=== PATIENT | male | born 2000 | race Caucasian/White ===

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

== ENCOUNTER 2018-11-15 18:54 | Emergency (ER) | payer SELFPAY ==
[~2018-11-15] VITALS: Ht 172.7 cm; Wt 54.4 kg
[~2018-11-15 18:54] MED LIST changes: +ACHD5005 PO; +CEPH-507 PO; -HYDR-3812 PO; +HYDR-4226 PO; +MUPI22OI2 TP
--- NOTE | 2018-11-15 19:00 | NUR ---
pt here by self. pt alert [facility] 15. pt c/o " dehydration or uti". c/o " tip of penis irritated". says " I did masterbate before bed last noc". pt c/o pain with ua and a penis d/c started today. denies other ua c/os. denies abd pain and denies testicle pain and denies n/v/d. pt does relate hes been drinking alot of h20 today. no sighns of dehydration noted. no acute sighns of dyspnea noted.i will leave penis assessment deferrd to dr. keysha osuna pt at 1905.
--- NOTE | 2018-11-15 19:12 | ED GU-Female ---
General Chief Complaint: - Urinary Stated Complaint: POSSIBLE UTI Source: patient History of Present Illness Date Seen by Provider: Nov 15, 2018 Time Seen by Provider: 19:02 Initial Comments PT ARRIVES VIA POV FROM HOME STATES "THE TIP OF MY PENIS HOLE IS IRRITATED" STATES 'I WAS SUPER DEHYDRATED THIS MORNING" STATES HE HAD SOME BURNING ON URINATION THIS AM HAS BEEN DRINKING ALOT OF WATER TODAY AND SYMPTOMS HAVE IMPROVED STATES HE "POSSIBLY": HAS HAD SOME DRAINAGE FROM PENIS, BUT "NOT SURE" NO FEVER NO ABDOMINAL OR BACK PAIN NO NAUSEA/VOMITING NO HISTORY OF UTI'S OR STD'S PCP: DR. Ye REA Allergies and Home Medications Allergies Coded Allergies: No Known Drug Allergies (Unverified , 07/30/10) Home Medications Cefuroxime Axetil 500 Mg Tablet, 500 MG PO BID Prescribed by: CLEO CALL on 06/02/152315 Cephalexin 500 Mg Capsule, 500 MG PO TID Prescribed by: CLEO CALL on 02/25/171099 Cyclobenzaprine HCl 10 Mg Tablet, 10 MG PO Q8H PRN for SPASMS Prescribed by: XIOMARA LANGSTON on 02/22/172000 Doxycycline Monohydrate 100 Mg Capsule, 100 MG PO BID Prescribed by: JARROD EDMONDS on 11/15/18 194 Hydrocodone Bit/Acetaminophen 1 Each Tablet, 1 EACH PO Q4H PRN for PAIN Prescribed by: CLEO CALL on 06/02/15 2333 Hydrocodone Bit/Acetaminophen 1 Each Tablet, 1 EACH PO Q4H PRN for PAIN Prescribed by: XIOMARA LANGSTON on 02/22/172000 Hydrocodone/Acetaminophen 1 Each Tablet, 1 EACH PO Q4H PRN for PAIN-SEVERE Prescribed by: CLEO CALL on 02/25/17 1100 Mupirocin 22 Gm Oint...g., 22 GM TP DAILY Prescribed by: CLEO CALL on 02/25/17 1100 Mupirocin Calcium 15 Gm Cream..g., 15 GM TP UD Apply to affected area twice daily 7 days. Prescribed by: XIOMARA LANGSTON on 02/22/172000 Patient Home Medication List Home Medication List Reviewed: Yes Review of Systems Review of Systems Constitutional: see HPI Respiratory: no symptoms reported Cardiovascular: no symptoms reported Gastrointestinal: no symptoms reported Genitourinary: see HPI Musculoskeletal: no symptoms reported Skin: no symptoms reported Endocrine: No Symptoms Reported Hematologic/Lymphatic: No Symptoms Reported Past Fnhusjd-Pzduxh-Hifubk Hx Patient Social History Alcohol Use: Occasionally Uses Recreational Drug Use: Yes (ADMITS TO THC, UDS + FOR COCAINE AND THC 11/15/18) Drug of Choice: ADMITS TO THC, UDS + FOR COCAINE AND THC 11/15/18 Smoking Status: Current Someday Smoker (SMOKES CIGARETTES AND VAPES) Type Used: Cigarettes, Electronic/Vapor Recent Foreign Travel: No Contact w/Someone Who Travel: No Immunizations Up To Date Tetanus Booster (TDap): Less than 5yrs Past Medical History Surgeries: Yes Tonsillectomy Respiratory: No Cardiac: No Neurological: No Sexually Transmitted Disease: No Genitourinary: No Gastrointestinal: No Musculoskeletal: No Endocrine: No HEENT: Yes Tonsilitis Cancer: No Psychosocial: No Integumentary: No Blood Disorders: No Adverse Reaction/Blood Tranf: No Family Medical History No Pertinent Family Hx Physical Exam Vital Signs Vital Signs - First Documented 11/15/18 19:00 Temp 99.3 Pulse 92 Resp 16 B/P (MAP) 123/92 (102) Pulse Ox 98 O2 Delivery Room Air Capillary Refill : Height, Weight, BMI Height: 5'8.00" Weight: 140lbs. 0oz. 63.605629xm; 21.09 BMI Method:Stated General Appearance: no apparent distress, thin Cardiovascular: regular rate, rhythm, no murmur Respiratory: normal breath sounds Gastrointestinal: non tender, soft Genital/Rectal: other (ERYTHEMA TO URETHRAL ORIFICE, WITH SMALL AMOUNT OF PURULENT DRAINAGE) Back: normal inspection, no CVA tenderness Extremities: normal inspection Neurologic/Psychiatric: watcher lookout tower II-XII nml as tested, no motor/sensory deficits, alert, normal mood/affect, oriented x 3 Skin: normal color, warm/dry Progress/Results/Core Measures Suspected Sepsis SIRS Temperature: Pulse: Respiratory Rate: Blood Pressure / Mean: Results/Orders Lab Results Laboratory Tests Test 11/15/18 19:19 11/15/18 19:23 Range/Units Urine Color YELLOW Urine Clarity SLIGHTLY CLOUDY Urine pH 5 5-9 Urine Specific [place] 1.025 H 1.016-1.022 Urine Protein 2+ H NEGATIVE Urine Glucose (UA) NEGATIVE NEGATIVE Urine Ketones 2+ H NEGATIVE Urine Nitrite NEGATIVE NEGATIVE Urine Bilirubin NEGATIVE NEGATIVE Urine Urobilinogen NORMAL NORMAL MG/DL Urine Leukocyte Esterase 2+ H NEGATIVE Urine RBC (Auto) 5+ H NEGATIVE Urine RBC 5-10 H /HPF Urine WBC 50-100 H /HPF Urine Squamous Epithelial Cells NONE /HPF Urine Crystals NONE /LPF Urine Bacteria TRACE /HPF Urine Casts NONE /LPF Urine Mucus SMALL H /LPF Urine Culture Indicated YES Urine Opiates Screen NEGATIVE NEGATIVE Urine Oxycodone Screen NEGATIVE NEGATIVE Urine Methadone Screen NEGATIVE NEGATIVE Urine Propoxyphene Screen NEGATIVE NEGATIVE Urine Barbiturates Screen NEGATIVE NEGATIVE Ur Tricyclic Antidepressants Screen NEGATIVE NEGATIVE Urine Phencyclidine Screen NEGATIVE NEGATIVE Urine Amphetamines Screen NEGATIVE NEGATIVE Urine Methamphetamines Screen NEGATIVE NEGATIVE Urine Benzodiazepines Screen NEGATIVE NEGATIVE Urine Cocaine Screen POSITIVE H NEGATIVE Urine Cannabinoids Screen POSITIVE H NEGATIVE My Orders Orders - JARROD EDMONDS K DO Ua Culture If Indicated (11/15/18 19:03) Neis Mitchell Dna Urine Test (11/15/18 19:03) Chlamydia Trachomatis Urine (11/15/18 19:03) Drug Screen Stat (Urine) (11/15/18 19:11) Ceftriaxone For Im Use (Rocephin For Im (11/15/18 19:30) Lidocaine 1% Inj 20 Ml (Xylocaine 1% Inj (11/15/18 19:30) Azithromycin Tablet (Zithromax Tablet) (11/15/18 19:30) Chlam Dna Probe (11/15/18 19:22) Genital Culture (11/15/18 19:22) Culture For Gc Only (11/15/18 19:22) Wet Prep (11/15/18 19:22) Urine Culture (11/15/18 19:23) Medications Given in ED Current Medications Medications Dose Ordered Sig/Mick Route Start Time Stop Time Status Last Admin Dose Admin Azithromycin 1,000 mg ONCE ONCE PO 11/15/18 19:30 11/15/18 19:31 DC 11/15/18 19:34 1,000 MG Lidocaine HCl 2.1 ml ONCE ONCE INJ 11/15/18 19:30 11/15/18 19:31 DC 11/15/18 19:36 2.1 ML Vital Signs/I&O 11/15/18 19:00 Temp 99.3 Pulse 92 Resp 16 B/P (MAP) 123/92 (102) Pulse Ox 98 O2 Delivery Room Air Capillary Refill : Departure Impression Primary Impression: Urethritis, nonspecific Additional Impressions: Urinary tract infection Illicit drug use Disposition: 01 HOME, SELF-CARE Condition: Stable Departure-Patient Inst. Referrals: AUDREY REA MD (PCP/Family) Primary Care Physician Patient Instructions: Urethritis (DC), Urinary Tract Infection, Adult (DC) Add. Discharge Instructions: NO INTERCOURSE UNTIL YOU ARE RECHECKED AND CLEARED BY . LOTS OF CLEAR LIQUIDS USE CONDOMS AT ALL TIMES FOLLOW UP WITH YOUR DR OR [facility] THIS WEEK FOR FURTHER CARE All discharge instructions reviewed with patient and/or family. Voiced understanding. Scripts Doxycycline Monohydrate (Doxycycline Monohydrate) 100 Mg Capsule 100 MG PO BID, #20 CAP Prov: JARROD EDMONDS DO 11/15/18 JARROD EDMONDS DO Nov 15, 2018 19:12
--- NOTE | 2018-11-15 19:16 | NUR ---
pt wanted someone to look at penis before he gave ua. i told we both went into room where pt had brown penis d/c. obtained swabs from penis.
--- NOTE | 2018-11-15 19:25 | NUR ---
ua and other labs tolab by me
[2018-11-15] MEDS ORDERED: LIDOCAINE 1% INJ 20 ML 20 ML VIAL INJ ONE (19:30)
[2018-11-15] MEDS ORDERED: AZITHROMYCIN 250 MG TAB (ZITHROMAX) PO ONE (19:30)
[2018-11-15] MEDS ORDERED: cefTRIAXone 1,000 MG/2.86 ml vial (IM ONLY) IM SCH (19:30)
[2018-11-15 19:36] LABS: BILIRUBIN,URINE NEGATIVE (NEGATIVE); CLARITY,URINE SLIGHTLY CLOUDY; COLOR,URINE YELLOW; GLUCOSE, URINE (UA) NEGATIVE (NEGATIVE); KETONES,URINE 2+ (NEGATIVE); LEUKOCYTE ESTERASE ,URINE 2+ (NEGATIVE); NITRITE,URINE NEGATIVE (NEGATIVE); PH,URINE 5 (5-9); PROTEIN,URINE 2+ (NEGATIVE); UROBILINOGEN,URINE NORMAL (NORMAL)
--- NOTE | 2018-11-15 19:40 | NUR ---
pt preferred im shot rvg. so that is where i gave it instead of lvg as charted.
[2018-11-15 19:41] LABS: BACTERIA,URINE TRACE /HPF; WBC,URINE 50-100 /HPF
[2018-11-15] MEDS ORDERED: DOXY100C42 PO (19:47)
--- NOTE | 2018-11-15 19:51 | NUR ---
dr said pt gets no work release.
[2018-11-15 19:52] LABS: AMPHETAMINE SCREEN, URINE NEGATIVE (NEGATIVE); BARBITURATE SCREEN URINE NEGATIVE (NEGATIVE); BENZODIAZEPINES SCREEN URINE NEGATIVE (NEGATIVE); CANNABINOID SCREEN, URINE POSITIVE (NEGATIVE); COCAINE SCREEN URINE POSITIVE (NEGATIVE); METHADONE STAT NEGATIVE (NEGATIVE); METHAMPHETAMINE SCREEN URINE S NEGATIVE (NEGATIVE); OPIATE SCREEN URINE NEGATIVE (NEGATIVE); OXYCODONE STAT NEGATIVE (NEGATIVE); PROPOXYPHENE STAT NEGATIVE (NEGATIVE); TRICYCLIC ANTIDEPRESSANTS SCRE NEGATIVE (NEGATIVE)
[2018-11-15 20:06] VITALS: BP 118/81
--- NOTE | 2018-11-15 20:06 | NUR ---
d/c instructions to pt. told to read all papers. scripts faxed. pt knows f/u. i went over the handtyped by information on the chart. pt had no iv. pt left ambulatory by self.
== END 2018-11-15 20:20 | disposition home or self-care (01) ==
LOC: EDUNIT# 18:54 → ER 18:56
DX: N34.2 Other urethritis (principal); N39.0 Urinary tract infection, site not specified; F15.10 Other stimulant abuse, uncomplicated; F14.10 Cocaine abuse, uncomplicated; F12.10 Cannabis abuse, uncomplicated; F17.210 Nicotine dependence, cigarettes, uncomplicated; F17.290 Nicotine dependence, other tobacco product, uncomplicated; Z90.89 Acquired absence of other organs
CPT/HCPCS: 36415; 80306; 81000; 87070; 87077; 87088; 87205; 87210; 87491; 87591; 99284

== ENCOUNTER 2020-02-04 13:42 | Emergency (ER) | payer OTHER ==
[~2020-02-04] VITALS: Ht 176 cm; Wt 68.0 kg
[~2020-02-04 13:42] MED LIST changes: +DOXY100C42 PO
[2020-02-04 14:05] VITALS: BP 125/69
--- NOTE | 2020-02-04 14:08 | ED General ---
General Stated Complaint: COVID SYMPTOMS Source of Information: Patient Exam Limitations: No Limitations History of Present Illness Date Seen by Provider: Feb 04, 2020 Time Seen by Provider: 14:08 Initial Comments To ER with sore throat and general malaise since last night. Chills. No fever no cough no shortness of breath no nausea no vomiting no diarrhea. Timing/Duration: 1-2 Days Severity: Moderate Associated Systoms: Fever/Chills Allergies and Home Medications Allergies Coded Allergies: No Known Drug Allergies (Unverified , 07/30/10) Home Medications Amoxicillin/Potassium Clav 1 Each Tablet, 1 EACH PO BID Prescribed by: CLEO CALL on 02/04/20 1540 Cefuroxime Axetil 500 Mg Tablet, 500 MG PO BID Prescribed by: CLEO CALL on 06/02/15 2316 Cephalexin 500 Mg Capsule, 500 MG PO TID Prescribed by: CLEO CALL on 02/25/171099 Cyclobenzaprine HCl 10 Mg Tablet, 10 MG PO Q8H PRN for SPASMS Prescribed by: XIOMARA LANGSTON on 02/22/172000 Doxycycline Monohydrate 100 Mg Capsule, 100 MG PO BID Prescribed by: JARROD EDMONDS on 11/15/18 194 Hydrocodone Bit/Acetaminophen 1 Each Tablet, 1 EACH PO Q4H PRN for PAIN Prescribed by: CLEO CALL on 06/02/15 2333 Hydrocodone Bit/Acetaminophen 1 Each Tablet, 1 EACH PO Q4H PRN for PAIN Prescribed by: XIOMARA LANGSTON on 02/22/172000 Hydrocodone/Acetaminophen 1 Each Tablet, 1 EACH PO Q4H PRN for PAIN-SEVERE Prescribed by: CLEO CALL on 02/25/17 1100 Mupirocin 22 Gm Oint...g., 22 GM TP DAILY Prescribed by: CLEO CALL on 02/25/17 1100 Mupirocin Calcium 15 Gm Cream..g., 15 GM TP UD Apply to affected area twice daily 7 days. Prescribed by: XIOMARA LANGSTON on 02/22/172000 Patient Home Medication List Home Medication List Reviewed: Yes Review of Systems Review of Systems Constitutional: see HPI EENTM: see HPI Respiratory: no symptoms reported Cardiovascular: no symptoms reported Genitourinary: no symptoms reported Musculoskeletal: no symptoms reported Skin: no symptoms reported Psychiatric/Neurological: No Symptoms Reported Hematologic/Lymphatic: No Symptoms Reported Immunological/Allergic: no symptoms reported Past Ugfolcb-Nmxtzy-Pihqvu Hx Patient Social History Drug of Choice: ADMITS TO THC, UDS + FOR COCAINE AND THC 11/15/18 Type Used: Cigarettes, Electronic/Vapor Recent Foreign Travel: No Contact w/Someone Who Travel: No Immunizations Up To Date Tetanus Booster (TDap): Less than 5yrs Past Medical History Surgeries: No Tonsillectomy Respiratory: No Cardiac: No Neurological: No Sexually Transmitted Disease: No Genitourinary: No Gastrointestinal: No Musculoskeletal: No Endocrine: No HEENT: No Tonsilitis Cancer: No Psychosocial: No Integumentary: No Blood Disorders: No Adverse Reaction/Blood Tranf: No Family Medical History No Pertinent Family Hx Physical Exam Vital Signs Vital Signs - First Documented 02/04/20 14:05 Temp 37.0 Pulse 89 Resp 18 B/P (MAP) 125/69 (87) Pulse Ox 100 O2 Delivery Room Air Capillary Refill : Height, Weight, BMI Height: 5'8.00" Weight: 120lbs. 0oz. 54.079053re; 21.09 BMI Method:Stated General Appearance: No Apparent Distress, WD/WN, Thin Eyes: Bilateral Eye Normal Inspection, Bilateral Eye PERRL, Bilateral Eye EOMI HEENT: Pharyngeal Erythema Neck: Full Range of Motion, Normal Inspection Respiratory: Normal Breath Sounds, No Accessory Muscle Use, No Respiratory Distress Cardiovascular: Regular Rate, Rhythm, Normal Peripheral Pulses Gastrointestinal: Non Tender, Soft Neurologic/Psychiatric: Alert, Oriented x3 Skin: Normal Color, Warm/Dry Progress/Results/Core Measures Suspected Sepsis SIRS Temperature: Pulse: Respiratory Rate: Laboratory Tests 02/04/20 14:07: White Blood Count 19.3H Blood Pressure / Mean: Laboratory Tests 02/04/20 14:07: Creatinine 0.82, Platelet Count 200, Total Bilirubin 1.1H Results/Orders Lab Results Laboratory Tests Test 02/04/20 14:07 Range/Units White Blood Count 19.3 H 4.3-11.0 10^3/uL Red Blood Count 4.64 4.35-5.85 10^6/uL Hemoglobin 15.4 13.3-17.7 G/DL Hematocrit 44 40-54 % Mean Corpuscular Volume 94 80-99 FL Mean Corpuscular Hemoglobin 33 25-34 PG Mean Corpuscular Hemoglobin Concent 35 32-36 G/DL Red Cell Distribution Width 11.8 10.0-14.5 % Platelet Count 200 130-400 10^3/uL Mean Platelet Volume 11.2 H 7.4-10.4 FL Neutrophils (%) (Auto) 81 H 42-75 % Lymphocytes (%) (Auto) 10 L 12-44 % Monocytes (%) (Auto) 9 0-12 % Eosinophils (%) (Auto) 1 0-10 % Basophils (%) (Auto) 0 0-10 % Neutrophils # (Auto) 15.6 H 1.8-7.8 X 10^3 Lymphocytes # (Auto) 1.9 1.0-4.0 X 10^3 Monocytes # (Auto) 1.6 H 0.0-1.0 X 10^3 Eosinophils # (Auto) 0.2 0.0-0.3 10^3/uL Basophils # (Auto) 0.0 0.0-0.1 10^3/uL Neutrophils % (Manual) 83 % Lymphocytes % (Manual) 8 % Monocytes % (Manual) 9 % Eosinophils % (Manual) 0 % Basophils % (Manual) 0 % Band Neutrophils 0 % Blood Morphology Comment NORMAL Sodium Level 136 135-145 MMOL/L Potassium Level 4.2 3.6-5.0 MMOL/L Chloride Level 99 98-107 MMOL/L Carbon Dioxide Level 24 21-32 MMOL/L Anion Gap 13 5-14 MMOL/L Blood Urea Nitrogen 12 7-18 MG/DL Creatinine 0.82 0.60-1.30 MG/DL Estimat Glomerular Filtration Rate > 60 BUN/Creatinine Ratio 15 Glucose Level 82 70-105 MG/DL Calcium Level 9.8 8.5-10.1 MG/DL Corrected Calcium 8.5-10.1 MG/DL Total Bilirubin 1.1 H 0.1-1.0 MG/DL Aspartate Amino Transf (AST/SGOT) 18 5-34 U/L Alanine Aminotransferase (ALT/SGPT) 11 0-55 U/L Alkaline Phosphatase 88 40-136 U/L C-Reactive Protein High Sensitivity 10.07 H 0.00-0.50 MG/DL Total Protein 8.1 6.4-8.2 GM/DL Albumin 4.7 H 3.2-4.5 GM/DL Monoscreen NEGATIVE NEGATIVE Group A Streptococcus Screen NEGATIVE NEGATIVE My Orders Orders - CALL,PETER [employer] Cbc With Automated Diff (02/04/20 14:06) Comprehensive Metabolic Panel (02/04/20 14:06) Rapid Strep A Screen (02/04/20 14:06) Monotest (02/04/20 14:06) Coronavirus Sars-Cov-2 So 2018 (02/04/20 14:06) Ed Iv/Invasive Line Start (02/04/20 14:06) Hs C Reactive Protein (02/04/20 14:06) Ketorolac Injection (Toradol Injection) (02/04/20 14:15) Lactated Ringers (Lr 1000 Ml Iv Solution (02/04/20 14:15) Manual Differential (02/04/20 14:07) Ua Culture If Indicated (02/04/20 14:22) Chest 1 View, Ap/Pa Only (02/04/20 14:22) Ceftriaxone For Iv Use (Rocephin For I (02/04/20 14:30) Dexamethasone Injection (Decadron Inje (02/04/20 14:30) Medications Given in ED Current Medications Medications Dose Ordered Sig/Mick Route Start Time Stop Time Status Last Admin Dose Admin Ketorolac Tromethamine 15 mg ONCE ONCE IVP 02/04/20 14:15 02/04/20 14:16 DC 02/04/20 14:25 15 MG Vital Signs/I&O 02/04/20 14:05 Temp 37.0 Pulse 89 Resp 18 B/P (MAP) 125/69 (87) Pulse Ox 100 O2 Delivery Room Air Capillary Refill : Departure Communication (Admissions) Patient refused to provide urine sample. Impression Primary Impression: Leukocytosis Qualified Codes: D72.829 - Elevated white blood cell count, unspecified Additional Impression: Sore throat Disposition: 01 HOME, SELF-CARE Condition: Stable Departure-Patient Inst. Decision time for Depature: 15:40 Referrals: AUDREY REA MD (PCP/Family) Primary Care Physician Patient Instructions: Sore Throat in Adults Add. Discharge Instructions: 1. Tylenol and ibuprofen for pain 2. Antibiotics as directed 3. Return to ER for any worsening. Do not return to work until you have a negative Kovic tests and symptom free for 72 hours. If your test is positive we will call you and guide you further. Scripts Amoxicillin/Potassium Clav (Augmentin [id number] Tablet) 1 Each Tablet 1 EACH PO BID, #14 TAB 0 Refills Prov: CLEO CALL APRN 02/04/20 Work/School Note: Work Release Form Date Seen in the Emergency Department: Feb 04, 2020 Return to Work: Feb 07, 2020 CLEO CALL APRN Feb 04, 2020 14:08
[2020-02-04 14:13] LABS: BASOPHILS % (AUTO) 0 % (0-10); EOSINOPHILS # (AUTO) 0.2 10^3/uL (0.0-0.3); EOSINOPHILS % (AUTO) 1 % (0-10); HEMATOCRIT 44 % (40-54); HEMOGLOBIN 15.4 G/DL (13.3-17.7); LYMPHOCYTES # (AUTO) 1.9 X 10^3 (1.0-4.0); LYMPHOCYTES % (AUTO) 10 % (12-44); MEAN CORPUSCULAR HEMOGLOBIN 33 PG (25-34); MEAN CORPUSCULAR HGB CONC 35 G/DL (32-36); MEAN CORPUSCULAR VOLUME 94 FL (80-99); MEAN PLATELET VOLUME 11.2 FL (7.4-10.4); MONOCYTES # (AUTO) 1.6 X 10^3 (0.0-1.0); MONOCYTES % (AUTO) 9 % (0-12); NEUTROPHILS # (AUTO) 15.6 X 10^3 (1.8-7.8); NEUTROPHILS % (AUTO) 81 % (42-75); PLATELET COUNT 200 10^3/uL (130-400); RED CELL DISTRIBUTION WIDTH 11.8 % (10.0-14.5); WHITE BLOOD COUNT 19.3 10^3/uL (4.3-11.0)
[2020-02-04] MEDS ORDERED: LACTATED RINGERS 1,000 ML IV SCH (14:15)
[2020-02-04] MEDS ORDERED: KETOROLAC 30 MG/ML VIAL IVP ONE (14:15)
[2020-02-04 14:23] LABS: ALBUMIN 4.7 GM/DL (3.2-4.5)
[2020-02-04 14:24] LABS: CHLORIDE 99 MMOL/L (98-107); POTASSIUM 4.2 MMOL/L (3.6-5.0); SODIUM 136 MMOL/L (135-145)
[2020-02-04 14:25] LABS: CALCIUM 9.8 MG/DL (8.5-10.1)
[2020-02-04 14:26] LABS: GLUCOSE 82 MG/DL (70-105); TOTAL PROTEIN 8.1 GM/DL (6.4-8.2)
[2020-02-04 14:27] LABS: CARBON DIOXIDE 24 MMOL/L (21-32)
[2020-02-04 14:28] LABS: BILIRUBIN,TOTAL 1.1 MG/DL (0.1-1.0)
[2020-02-04 14:29] LABS: ALKALINE PHOSPHATASE 88 U/L (40-136)
[2020-02-04 14:30] LABS: CREATININE SERUM 0.82 MG/DL (0.60-1.30); GFR ESTIMATED > 60
[2020-02-04] MEDS ORDERED: cefTRIAXone FOR IV USE 1,000 MG in WATER (STERILE) FOR INJECTION 10 ML IV ONE (14:30)
[2020-02-04 14:31] LABS: BUN/CREATININE RATIO 15
[2020-02-04 14:32] LABS: ALANINE AMINOTRANSFERASE 11 U/L (0-55)
[2020-02-04 14:37] LABS: BAND NEUTROPHILS 0 %; BASOPHILS % (MANUAL) 0 %; EOSINOPHILS % (MANUAL) 0 %; LYMPHOCYTES % (MANUAL) 8 %; MONOCYTES % (MANUAL) 9 %; NEUTROPHILS % (MANUAL) 83 %; RBC MORPH NORMAL
--- NOTE | 2020-02-04 14:59 | Diagnostic Imaging Report ---
INDICATION: fever, sore throat, leukocytosis COMPARISON: 02/12/2017 EXAMINATION: Single frontal view of the chest was obtained. FINDINGS: Normal heart size and pulmonary vascularity. The lungs are well aerated and clear. No large pleural effusion or pneumothorax is seen. The visualized osseous structures show no acute abnormalities. IMPRESSION: No acute cardiopulmonary process. Dictated by: Dictated on workstation # [id number]
[2020-02-04] MEDS ORDERED: AMOX-358 PO (15:40)
--- NOTE | 2020-02-04 15:50 | NUR ---
PATIENT VOIDED, BUT REFUSED TO ALLOW STAFF TO RUN A URINE ANALYSIS DUE TO HE COULD NOT AFFORD IT SINCE HE DID NOT HAVE INSURENCE. PROVIDER NOTIFIED.
== END 2020-02-04 16:01 | disposition home or self-care (01) ==
LOC: EDUNIT# 13:42 → ER 13:44
DX: J02.9 Acute pharyngitis, unspecified (principal); D72.829 Elevated white blood cell count, unspecified; Z20.828 Contact with and (suspected) exposure to other viral communicable diseases
CPT/HCPCS: 71045; 80053; 85007; 85027; 86141; 86308; 87430; 99284; U0002; 36415; 87635

== ENCOUNTER 2021-04-29 20:51 | Emergency (ER) | payer SELFPAY ==
[~2021-04-29] VITALS: Ht 172.7 cm; Wt 57.7 kg
[~2021-04-29 20:51] MED LIST changes: +AMOX-358 PO; +DOXY-311 PO; -DOXY100C42 PO
[2021-04-29 20:54] VITALS: BP 113/63
[2021-04-29] MEDS ORDERED: LORazepam INJ 2 MG/ML (ATIVAN) VIAL IVP STA (21:04)
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
[2021-04-29 21:14] LABS: BASOPHILS # (AUTO) 0.1 10^3/uL (0.0-0.1); BASOPHILS % (AUTO) 0 % (0-10); EOSINOPHILS # (AUTO) 0.3 10^3/uL (0.0-0.3); EOSINOPHILS % (AUTO) 1 % (0-10); HEMATOCRIT 52 % (40-54); HEMOGLOBIN 16.3 g/dL (13.3-17.7); LYMPHOCYTES # (AUTO) 12.9 10^3/uL (1.0-4.0); LYMPHOCYTES % (AUTO) 56 % (12-44); MEAN CORPUSCULAR HEMOGLOBIN 33 pg (25-34); MEAN CORPUSCULAR HGB CONC 31 g/dL (32-36); MEAN CORPUSCULAR VOLUME 107 fL (80-99); MEAN PLATELET VOLUME 10.5 fL (9.0-12.2); MONOCYTES # (AUTO) 1.9 10^3/uL (0.0-1.0); MONOCYTES % (AUTO) 8 % (0-12); NEUTROPHILS % (AUTO) 34 % (42-75); PLATELET COUNT 429 10^3/uL (130-400); WHITE BLOOD COUNT 23.3 10^3/uL (4.3-11.0)
[2021-04-29] MEDS ORDERED: ONDANSETRON 4 MG/2 ML (SDV) Z0FRAN IVP ONE (21:15)
[2021-04-29] MEDS ORDERED: TETANUS,DIPTH,PERTUSS P/F (BOOSTRIX) 0.5 ML VIAL IM ONE (21:15)
[2021-04-29] MEDS ORDERED: NS IV 1000 ML 1,000 ML IV SCH (21:15)
[2021-04-29] MEDS ORDERED: fentaNYL INJ 100 MCG/2 ML AMP IVP ONE (21:15)
[2021-04-29 21:20] LABS: ALBUMIN 4.1 GM/DL (3.2-4.5); POTASSIUM 3.5 MMOL/L (3.6-5.0)
[2021-04-29 21:22] LABS: CALCIUM 8.5 MG/DL (8.5-10.1)
[2021-04-29 21:23] LABS: TOTAL PROTEIN 7.4 GM/DL (6.4-8.2)
[2021-04-29 21:24] LABS: INR 1.2 (0.8-1.4)
[2021-04-29 21:25] LABS: BILIRUBIN,TOTAL 0.3 MG/DL (0.1-1.0)
[2021-04-29 21:27] LABS: CREATININE SERUM 1.39 MG/DL (0.60-1.30)
[2021-04-29 21:31] LABS: EOSINOPHILS % (MANUAL) 2 %; LYMPHOCYTES % (MANUAL) 51 %; MONOCYTES % (MANUAL) 22 %; NEUTROPHILS % (MANUAL) 25 %; RBC MORPH NORMAL
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
[2021-04-29] MEDS ORDERED: proPOfol 200 MG/20 ML (DIPRIVAN) VIAL IV ONE (22:00)
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
--- NOTE | 2021-04-29 22:36 | Diagnostic Imaging Report ---
HISTORY: Post reduction of the right shoulder. TECHNIQUE: Frontal view of the right shoulder. COMPARISON: Radiographs from the same day. FINDINGS: Alignment of the right shoulder appears normal on this single view. No fracture is seen. Acromioclavicular joint alignment appears normal. IMPRESSION: No fracture or dislocation is seen on this single view of the right shoulder. Dictated by: Dictated on workstation # [id number]
== END 2021-04-29 23:49 | disposition home or self-care (01) ==
LOC: EDUNIT# 20:51 → ER 20:53
DX: S51.831A Puncture wound without foreign body of right forearm, initial encounter (principal); S09.90XA Unspecified injury of head, initial encounter; S20.91XA Abrasion of unspecified parts of thorax, initial encounter; R06.4 Hyperventilation; Z23 Encounter for immunization; W34.09XA Accidental discharge from other specified firearms, initial encounter
CPT/HCPCS: 70450; 71045; 72125; 73020; 73060; 73090; 80053; 85007; 85027; 85610; 85730; 93041; 99285; G0480; 36415; 80320; 90715

== ENCOUNTER 2022-10-26 03:37 | Emergency (ER) | payer SELFPAY ==
[~2022-10-26 03:37] MED LIST changes: +CYCL10TA25 PO; -CYCL10TA9 PO; -DOXY-311 PO; +DOXY-444 PO
[2022-10-26 03:38] VITALS: BP 148/94
[2022-10-26] MEDS ORDERED: NS IV 1000 ML 1,000 ML IV STA (03:48)
--- NOTE | 2022-10-26 03:55 | ED General ---
General Stated Complaint: UNRESPONSIVE Source of Information: Patient, EMS History of Present Illness Date Seen by Provider: October 26, 2022 Time Seen by Provider: 03:37 Initial Comments 22 yo male presenting by EMS from residence where he was reportedly found unresponsive and getting chest compressions. EMS reported that patient had decreased responsiveness until they administered Narcan 2 mg. That had helped improve his level of consciousness. Along with waking him up he is very cold and shivering. He has previously done fentanyl as well as cocaine and methamphetamines. He states that he hates needles so that he did not inject anything but was smoking but he does not know what he had used earlier tonight. Denies allergies and denies other medical problems. Associated Systoms: No Cough, No Diaphoresis; Fever/Chills (chills); No Headaches, No Malaise, No Nausea/Vomiting, No Shortness of Air Allergies and Home Medications Allergies Coded Allergies: No Known Drug Allergies (Unverified , 07/30/10) Patient Home Medication List Home Medication List Reviewed: Yes Amoxicillin/Potassium Clav (Augmentin 875-125 Tablet) 1 Each Tablet, 1 EACH PO BID Prescribed by: CLEO CALL on 02/04/20 154 Cefuroxime Axetil (Ceftin) 500 Mg Tablet, 500 MG PO BID Prescribed by: CLEO CALL on 06/02/15 2316 Cephalexin (Keflex) 500 Mg Capsule, 500 MG PO TID Prescribed by: CLEO CALL on 02/25/171099 Cyclobenzaprine HCl (Cyclobenzaprine HCl) 10 Mg Tablet, 10 MG PO Q8H PRN for SPASMS Prescribed by: XIOMARA LANGSTON on 02/22/172000 Doxycycline Monohydrate (Doxycycline Monohydrate) 100 Mg Capsule, 100 MG PO BID Prescribed by: JARROD EDMONDS on 11/15/181946 Hydrocodone Bit/Acetaminophen (Lortab 5 Mg Tablet) 1 Each Tablet, 1 EACH PO Q4H PRN for PAIN Prescribed by: CLEO CALL on 06/02/15 233 Hydrocodone Bit/Acetaminophen (Lortab 5 Mg Tablet) 1 Each Tablet, 1 EACH PO Q4H PRN for PAIN Prescribed by: XIOMARA LANGSTON on 02/22/172000 Hydrocodone/Acetaminophen (Hydrocodone/Acetaminophen 5 MG/325 MG TAB) 1 Each Tablet, 1 EACH PO Q4H PRN for PAIN-SEVERE Prescribed by: CLEO CALL on 02/25/17 1100 Mupirocin (Mupirocin) 22 Gm Oint...g., 22 GM TP DAILY Prescribed by: CLEO CALL on 02/25/17 1100 Mupirocin Calcium (Bactroban) 15 Gm Cream..g., 15 GM TP UD Prescribed by: XIOMARA LANSGTON on 02/22/172000 Review of Systems Review of Systems Constitutional: chills EENTM: no symptoms reported Respiratory: no symptoms reported Cardiovascular: no symptoms reported Gastrointestinal: no symptoms reported Genitourinary: no symptoms reported Musculoskeletal: no symptoms reported Skin: no symptoms reported Psychiatric/Neurological: Tremors Past Tvdiptt-Dhgnxo-Akvwfq Hx Patient Social History Tobacco Use?: Yes Tobacco type used: Cigarettes Substance use?: Yes Substance type: Methamphetamine, Opiates/Opioids, Marijuana Immunizations Up To Date Tetanus Booster (TDap): Less than 5yrs Past Medical History Surgery/Hospitalization HX: Polysubstance abuse Surgeries: No Tonsillectomy Respiratory: No Cardiac: No Neurological: No Sexually Transmitted Disease: No Genitourinary: No Gastrointestinal: No Musculoskeletal: No Endocrine: No HEENT: No Tonsilitis Cancer: No Psychosocial: No Integumentary: No Blood Disorders: No Adverse Reaction/Blood Tranf: No Family Medical History No Pertinent Family Hx Physical Exam Vital Signs Vital Signs - First Documented 10/26/22 03:38 Temp 36.1 Pulse 122 Resp 28 B/P (MAP) 148/94 (112) Pulse Ox 98 O2 Delivery Room Air Capillary Refill : Height, Weight, BMI Height: 5'8.00" Weight: 120lbs. 0oz. 54.528399ul; 19.00 BMI Method:Stated General Appearance: Anxious, Mild Distress (shivering and tremoring with complaint of being cold), Thin HEENT: PERRL/EOMI, Pharynx Normal Neck: Full Range of Motion, Non Tender, Supple Respiratory: Chest Non Tender, Lungs Clear, Normal Breath Sounds, No Accessory Muscle Use, No Respiratory Distress Cardiovascular: Normal Peripheral Pulses, Tachycardia Gastrointestinal: Normal Bowel Sounds, No Pulsatile Mass, Non Tender, Soft Rectal: Deferred Back: No CVA Tenderness Extremity: Normal Capillary Refill, Normal Inspection, No Pedal Edema Neurologic/Psychiatric: Alert, Oriented x3, stone repairer II-XII Norm as Tested Skin: Cool Procedures/Interventions Patient Education: Explained Benefits Breath Sounds per Auscultation: Clear Heart Sounds per Auscultation: Regular Airway Exam: Mouth opens >2 fingers, Neck Full Range of Motion, Visulation of Uvula Sedation Adminstration Time: 2212 Progress/Results/Core Measures Suspected Sepsis SIRS Temperature: Pulse: Respiratory Rate: Laboratory Tests 10/26/22 03:44: White Blood Count 17.2H Blood Pressure / Mean: Laboratory Tests 10/26/22 03:44: Creatinine 1.03, Platelet Count 129L, Total Bilirubin 0.4 Results/Orders Lab Results Laboratory Tests Test 10/26/22 03:44 Range/Units White Blood Count 17.2 H 4.3-11.0 10^3/uL Red Blood Count 4.82 4.30-5.52 10^6/uL Hemoglobin 16.8 13.3-17.7 g/dL Hematocrit 50 40-54 % Mean Corpuscular Volume 104 H 80-99 fL Mean Corpuscular Hemoglobin 35 H 25-34 pg Mean Corpuscular Hemoglobin Concent 33 32-36 g/dL Red Cell Distribution Width 11.9 10.0-14.5 % Platelet Count 129 L 130-400 10^3/uL Mean Platelet Volume 13.0 H 9.0-12.2 fL Immature Granulocyte % (Auto) 1 % Neutrophils (%) (Auto) 31 L 42-75 % Lymphocytes (%) (Auto) 63 H 12-44 % Monocytes (%) (Auto) 3 0-12 % Eosinophils (%) (Auto) 2 0-10 % Basophils (%) (Auto) 1 0-10 % Neutrophils # (Auto) 5.4 1.8-7.8 10^3/uL Lymphocytes # (Auto) 10.8 H 1.0-4.0 10^3/uL Monocytes # (Auto) 0.6 0.0-1.0 10^3/uL Eosinophils # (Auto) 0.3 0.0-0.3 10^3/uL Basophils # (Auto) 0.1 0.0-0.1 10^3/uL Immature Granulocyte # (Auto) 0.1 0.0-0.1 10^3/uL Neutrophils % (Manual) 27 % Lymphocytes % (Manual) 65 % Monocytes % (Manual) 8 % Sodium Level 136 135-145 MMOL/L Potassium Level 6.3 H 3.6-5.0 MMOL/L Chloride Level 96 L 98-107 MMOL/L Carbon Dioxide Level 17 L 21-32 MMOL/L Anion Gap 23 H 5-14 MMOL/L Blood Urea Nitrogen 13 7-18 MG/DL Creatinine 1.03 0.60-1.30 MG/DL Estimat Glomerular Filtration Rate 104 BUN/Creatinine Ratio 13 Glucose Level 243 H 70-105 MG/DL Calcium Level 9.0 8.5-10.1 MG/DL Corrected Calcium 8.8 8.5-10.1 MG/DL Total Bilirubin 0.4 0.1-1.0 MG/DL Aspartate Amino Transf (AST/SGOT) 445 H 5-34 U/L Alanine Aminotransferase (ALT/SGPT) 443 H 0-55 U/L Alkaline Phosphatase 106 40-136 U/L Total Protein 7.8 6.4-8.2 GM/DL Albumin 4.2 3.2-4.5 GM/DL Salicylates Level < 0.3 L 5.0-20.0 MG/DL Acetaminophen Level < 10 L 10-30 UG/ML Serum Alcohol < 10 <10 MG/DL My Orders Orders - HUGO BEE MD Cbc With Automated Diff (10/26/22 03:48) Comprehensive Metabolic Panel (10/26/22 03:48) Alcohol (10/26/22 03:48) Acetaminophen (10/26/22 03:48) Salicylate (10/26/22 03:48) Ekg Tracing (10/26/22 03:48) Ed Iv/Invasive Line Start (10/26/22 03:48) Monitor-Rhythm Ecg Trace Only (10/26/22 03:48) Ns Iv 1000 Ml (Sodium Chloride 0.9%) (10/26/22 03:48) Manual Differential (10/26/22 03:44) Vital Signs/I&O 10/26/22 03:38 Temp 36.1 Pulse 122 Resp 28 B/P (MAP) 148/94 (112) Pulse Ox 98 O2 Delivery Room Air Capillary Refill : Progress Note #1: Progress Note Potential diagnosis of opiate overdose dose, polysubstance abuse, alcohol abuse, electrolyte imbalance, dehydration. Peripheral IV in place from EMS. Obtain blood for labs to check complete blood count, comprehensive metabolic profile, alcohol level, acetaminophen level, salicylate level, urinalysis and urine drug screen. Progress Note #2: Time: 04:07 Progress Note Patient remains awake and alert. He is not shivering as much now. He states that he does not want any further testing and he just wants to go. He remains alert and appropriate. He is alert and oriented x3. He denies needing any further medical evaluation or treatment. He stated understanding that we did not have any testing or clear evaluation of what had happened for him tonight other than he likely had an opiate overdose. By now the Narcan would be out of his system and he should be sedated again if he continued to have high dose of opiates in his system. Without getting additional testing and evaluation unclear about prognosis. He voiced understanding of this and still refused any further care and wanted to leave AGAINST MEDICAL ADVICE. He was given some dry close he came in wearing from EMS were wet. 0434 complete blood count showed elevated white blood cell count to 17.2 with 63% lymphocytes. His comprehensive metabolic profile was grossly hemolyzed which was skewing his electrolyte testing. It showed a potassium of 6.3 but again that was with over 2+ hemolysis. Alcohol level was less than 10. Acetaminophen level was less than 10. Salicylate level was less than 0.3. Departure Impression Primary Impression: Opiate or related narcotic overdose Qualified Codes: T40.601A - Poisoning by unspecified narcotics, accidental (unintentional), initial encounter Disposition: 07 AGAINST MEDICAL ADVICE Condition: Against Medical Advice Departure-Patient Inst. Decision time for Depature: 04:07 Referrals: AUDREY REA MD (PCP/Family) Primary Care Physician Patient Instructions: Leaving Against Medical Advice, Opioid Overdose ED Add. Discharge Instructions: Do not abuse drugs or alcohol Stay well hydrated and drink plenty of water and electrolyte drinks HUGO BEE MD October 26, 2022 03:55
[2022-10-26 04:01] LABS: BASOPHILS # (AUTO) 0.1 10^3/uL (0.0-0.1); BASOPHILS % (AUTO) 1 % (0-10); EOSINOPHILS # (AUTO) 0.3 10^3/uL (0.0-0.3); EOSINOPHILS % (AUTO) 2 % (0-10); HEMATOCRIT 50 % (40-54); HEMOGLOBIN 16.8 g/dL (13.3-17.7); LYMPHOCYTES # (AUTO) 10.8 10^3/uL (1.0-4.0); LYMPHOCYTES % (AUTO) 63 % (12-44); MEAN CORPUSCULAR HEMOGLOBIN 35 pg (25-34); MEAN CORPUSCULAR HGB CONC 33 g/dL (32-36); MEAN CORPUSCULAR VOLUME 104 fL (80-99); MONOCYTES # (AUTO) 0.6 10^3/uL (0.0-1.0); MONOCYTES % (AUTO) 3 % (0-12); NEUTROPHILS # (AUTO) 5.4 10^3/uL (1.8-7.8); NEUTROPHILS % (AUTO) 31 % (42-75); PLATELET COUNT 129 10^3/uL (130-400); WHITE BLOOD COUNT 17.2 10^3/uL (4.3-11.0)
[2022-10-26 04:21] LABS: ACETAMINOPHEN < 10 UG/ML (10-30); ALANINE AMINOTRANSFERASE 443 U/L (0-55); ALBUMIN 4.2 GM/DL (3.2-4.5); ALKALINE PHOSPHATASE 106 U/L (40-136); BILIRUBIN,TOTAL 0.4 MG/DL (0.1-1.0); BUN/CREATININE RATIO 13; CARBON DIOXIDE 17 MMOL/L (21-32); CHLORIDE 96 MMOL/L (98-107); CREATININE SERUM 1.03 MG/DL (0.60-1.30); GFR ESTIMATED 104; GLUCOSE 243 MG/DL (70-105); POTASSIUM 6.3 MMOL/L (3.6-5.0); SALICYLATE < 0.3 MG/DL (5.0-20.0); SODIUM 136 MMOL/L (135-145); TOTAL PROTEIN 7.8 GM/DL (6.4-8.2)
[2022-10-26 04:39] LABS: LYMPHOCYTES % (MANUAL) 65 %; MONOCYTES % (MANUAL) 8 %; NEUTROPHILS % (MANUAL) 27 %
== END 2022-10-26 04:35 | disposition left against medical advice (07) ==
LOC: EDUNIT# 03:37 → ER FS 03:40
DX: T40.601A Poisoning by unspecified narcotics, accidental (unintentional), initial encounter (principal); D72.829 Elevated white blood cell count, unspecified; F17.210 Nicotine dependence, cigarettes, uncomplicated; Z28.310 Unvaccinated for COVID-19
CPT/HCPCS: 36415; 80053; 85007; 85027; 93041; 99284; G0480 ×3; 80320; 80329; 93005